=== PATIENT | male | born 1950 | race Caucasian/White ===

== ENCOUNTER → 2017-09-20 | Outpatient (CLI) | payer MEDICARE, OTHER ==
[2015-08-26 11:25] VITALS: BMI 25.0
[~2017-09-20] MED LIST: ASPI-757 PO; DIA10 PO; DOC100 PO; DOCU-416 PO; DOXA1TAB37 PO; HYDR-4308 PO; IBU800 PO; LISI-349 PO; MORP-20 PO; MORP60TA51 PO; NAPR-744 PO; OMEP-218 PO; OXYGENHOME INH; TEST200V IM; TEST200V20 IM; TEST200V22; VERA240T12 PO
[2017-09-20 09:11] LABS: PLATELET COUNT, AUTOMATED 163 K/uL (150-450)
[2017-09-20 09:44] LABS: LDL CHOLESTEROL 91 mg/dl
== END ==
LOC: LAB 08:33
PROVIDERS: ATTEND Internal Medicine
DX: Z12.5 Encounter for screening for malignant neoplasm of prostate (principal); M17.11 Unilateral primary osteoarthritis, right knee; I10 Essential (primary) hypertension; M19.90 Unspecified osteoarthritis, unspecified site; E29.1 Testicular hypofunction; N40.0 Benign prostatic hyperplasia without lower urinary tract symptoms; Z86.39 Personal history of other endocrine, nutritional and metabolic disease
CPT/HCPCS: 36415; 83036; 84402; 84403; 85025; G0103; 82040; 82247; 82310; 82374; 82435; 82465; 82565; 82947; 83718; 84075; 84132; 84153; 84155; 84295; 84450; 84460; 84478; 84520

== ENCOUNTER → 2017-10-17 | Outpatient (CLI) | payer MEDICARE, OTHER ==
[2015-08-26 11:25] VITALS: BMI 25.0
[~2017-10-17] MED LIST changes: +DOXA4TAB58 PO; +POLY17PO25 PO; +VALS1TAB4 PO
== END ==
LOC: LAB 09:26
PROVIDERS: ATTEND Internal Medicine
DX: E29.1 Testicular hypofunction (principal)
CPT/HCPCS: 36415; 84403

== ENCOUNTER → 2018-01-25 | Outpatient (CLI) | payer MEDICARE, OTHER ==
[2015-08-26 11:25] VITALS: BMI 25.0
[2018-01-25 08:49] LABS: PLATELET COUNT, AUTOMATED 176 K/uL (150-450)
[2018-01-25 09:39] LABS: LDL CHOLESTEROL 102 mg/dl
== END ==
LOC: LAB 08:32
PROVIDERS: ATTEND Internal Medicine
DX: N40.0 Benign prostatic hyperplasia without lower urinary tract symptoms (principal); I10 Essential (primary) hypertension; M19.90 Unspecified osteoarthritis, unspecified site; Z86.39 Personal history of other endocrine, nutritional and metabolic disease
CPT/HCPCS: 36415; 82040; 82247; 82310; 82374; 82435; 82465; 82565; 82947; 83036; 83718; 84075; 84132; 84155; 84295; 84450; 84460; 84478; 84520; 85025

== ENCOUNTER 2018-01-28 04:03 | Inpatient (IN) | payer MEDICARE, OTHER ==
[~2018-01-28] VITALS: Ht 172.7 cm; Wt 83.0 kg
--- NOTE | 2018-01-28 04:11 | ER Report ---
History and Physical Time Seen By MD: 04:11 HPI/ROS CHIEF COMPLAINT:?, Bowel obstruction HISTORY OF PRESENT ILLNESS: 67-year-old male presents with severe abdominal pain and pressure for 6 hours. Patient last ate dinner last night. He subsequently developed severe abdominal pain after retiring to bed. He has a history of 2 previous bowel obstructions. He has previous abdominal surgery in the form of partial colectomy for diverticulitis. Patient also has 3 back surgeries and is on high levels of extended release morphine 60 mg 3 times a day. Patient states he freely suffers constipation. Patient states his pain is different. He feels that this is similar to one of his previous bowel obstructions. Patient notes no vomiting, but severe nausea. His last bowel movement was 7 PM last night. REVIEW OF SYSTEMS: Respiratory: No cough, no dyspnea. Cardiovascular: No chest pain, no palpitations. Gastrointestinal: As above Musculoskeletal: No back pain. Allergies: Coded Allergies: ROSENDA Inhibitors (Verified Allergy, Unknown, 01/28/18) Home Meds Reported Medications Morphine Sulfate (Arymo ER) 30 Mg Tab.po.er, 1 TAB PO DAILY once mid day 01/28/18 Valsartan/Hydrochlorothiazide (DIOVAN HCT 160-12.5 MG TAB) 1 Each Tablet, 1 TAB PO DAILY 01/28/18 Ibuprofen (IBUPROFEN) 200 Mg Capsule, 2 CAP PO BID Y for PAIN, CAPSULE 01/28/18 Polyethylene Glycol 3350 (MIRALAX) 17 Gm Powd.pack, 17 GM PO QDAY Y for CONSTIPATION, PKT 10/11/17 Omeprazole Magnesium (PRILOSEC OTC) 20 Mg Tablet.dr, 1 TAB PO QDAY, TAB 04/06/17 Morphine Sulfate 15 Mg Er Tab (MORPHINE SULFATE 15 MG ER TAB) 15 Mg Tablet.er, 60 MG PO BID, TAB 04/06/17 Docusate Sodium (COLACE) 100 Mg Capsule, 1 TAB PO PRN Y for CONSTIPATION, CAPSULE BID PRN 04/06/17 Testosterone Cypionate (DEPO-TESTOSTERONE) 200 Mg/1 Ml Vial, 200 MG IM Monthly, VIAL 04/06/17 Discontinued Scripts Valsartan/Hydrochlorothiazide (VALSARTAN-HCTZ 160-12.5 MG TAB) 1 Each Tablet, 1 EACH PO QDAY, #7 TAB Prov:CHRISTOS MUSE MD 01/26/18 Doxazosin Mesylate (DOXAZOSIN MESYLATE) 4 Mg Tablet, 0.5 TAB PO QAM, #45 TAB 3 Refills Prov:CHRISTOS MUSE MD 11/20/17 Reviewed Nurses Notes: Yes Old Medical Records Reviewed: Yes Hx Smoking: No Smoking Status: Never Smoker Hx Substance Use Disorder: No Hx Alcohol Use: No Constitutional Vital Sign - Last 24 Hours 01/28/18 01/28/18 01/28/18 01/28/18 04:08 04:18 04:20 04:30 Temp 98.0 Pulse 87 86 Resp 16 B/P (MAP) 160/113 (129) 160/113 143/106 (118) Pulse Ox 95 98 O2 Delivery Room Air 01/28/18 01/28/18 01/28/18 01/28/18 04:33 04:48 05:00 05:03 Pulse 79 69 B/P (MAP) 142/92 (109) Pulse Ox 95 93 89 01/28/18 01/28/18 01/28/18 01/28/18 05:18 05:23 05:30 05:38 Pulse 70 66 69 B/P (MAP) 153/93 (113) Pulse Ox 89 91 01/28/18 01/28/18 01/28/18 01/28/18 05:53 06:00 06:08 06:23 Pulse 69 76 75 B/P (MAP) 139/85 (103) Pulse Ox 84 90 91 01/28/18 06:30 B/P (MAP) 155/106 (122) Intake and Output 01/28/18 01/28/18 01/29/18 14:59 22:59 06:59 Intake Total 1000 ml Balance 1000 ml Physical Exam General Appearance: The patient is alert, has no immediate need for airway protection and no current signs of toxicity. Moderate distress HEENT: Pupils equal and round no injection. Oropharynx with moist membranes, no erythema Respiratory: Chest is non tender, lungs are clear to auscultation. Cardiac: regular rate and rhythm Gastrointestinal: Abdomen is soft, mild distention, firm upper abdomen, moderate tenderness in the left upper quadrant, no masses, bowel sounds normal. Musculoskeletal: Neck: Neck is supple and non tender. Extremities have full range of motion and are non tender. Skin: No rashes or lesions. DIFFERENTIAL DIAGNOSIS: After history and physical exam differential diagnosis was considered for abdominal pain including but not limited to appendicitis, cholecystitis, , bowel obstruction gastritis and urinary tract infection. Medical Decision Making Data Points Result Diagram: 01/28/18 0414 01/28/18 0414 Laboratory Hematology Test 01/28/18 04:14 Red Blood Count 6.26 M/uL (4.00-5.60) Mean Corpuscular Volume 89.8 fL (80.0-96.0) Mean Corpuscular Hemoglobin 31.4 pg (26.0-33.0) Mean Corpuscular Hemoglobin Concent 35.0 g/dL (32.0-36.0) Red Cell Distribution Width 13.3 % (11.5-14.5) Mean Platelet Volume 7.3 fL (7.2-11.1) Neutrophils (%) (Auto) 73.6 % (39.4-72.5) Lymphocytes (%) (Auto) 16.4 % (17.6-49.6) Monocytes (%) (Auto) 7.9 % (4.1-12.4) Eosinophils (%) (Auto) 1.6 % (0.4-6.7) Basophils (%) (Auto) 0.5 % (0.3-1.4) Nucleated RBC Relative Count (auto) 0.7 /100WBC Neutrophils # (Auto) 9.4 K/uL (2.0-7.4) Lymphocytes # (Auto) 2.1 K/uL (1.3-3.6) Monocytes # (Auto) 1.0 K/uL (0.3-1.0) Eosinophils # (Auto) 0.2 K/uL (0.0-0.5) Basophils # (Auto) 0.1 K/uL (0.0-0.1) Nucleated RBC Absolute Count (auto) 0.09 K/uL Sodium Level 137 mmol/L (137-145) Potassium Level 4.4 mmol/L (3.5-5.0) Chloride Level 95 mmol/L (98-107) Carbon Dioxide Level 30 mmol/L (22-30) Blood Urea Nitrogen 9 mg/dl (9-21) Creatinine 0.80 mg/dl (0.66-1.25) Glomerular Filtration Rate Calc > 60.0 Random Glucose 121 mg/dl (75-110) Lactate 1.8 mmol/L (0.7-2.1) Calcium Level 10.4 mg/dl (8.4-10.2) Total Bilirubin 0.6 mg/dl (0.2-1.3) Aspartate Amino Transf (AST/SGOT) 28 U/L (0-35) Alanine Aminotransferase (ALT/SGPT) 35 U/L (0-56) Alkaline Phosphatase 65 U/L (0-126) Total Protein 7.6 gm/dl (6.3-8.2) Albumin 4.8 g/dl (3.5-5.0) Amylase Level 69 U/L (0-110) Lipase 182 U/L (23-300) Chemistry Test 01/28/18 04:14 White Blood Count 12.8 k/uL (4.5-11.0) Red Blood Count 6.26 M/uL (4.00-5.60) Hemoglobin 19.7 g/dL (14.0-18.0) Hematocrit 56.2 % (42.0-52.0) Mean Corpuscular Volume 89.8 fL (80.0-96.0) Mean Corpuscular Hemoglobin 31.4 pg (26.0-33.0) Mean Corpuscular Hemoglobin Concent 35.0 g/dL (32.0-36.0) Red Cell Distribution Width 13.3 % (11.5-14.5) Platelet Count 215 K/uL (150-450) Mean Platelet Volume 7.3 fL (7.2-11.1) Neutrophils (%) (Auto) 73.6 % (39.4-72.5) Lymphocytes (%) (Auto) 16.4 % (17.6-49.6) Monocytes (%) (Auto) 7.9 % (4.1-12.4) Eosinophils (%) (Auto) 1.6 % (0.4-6.7) Basophils (%) (Auto) 0.5 % (0.3-1.4) Nucleated RBC Relative Count (auto) 0.7 /100WBC Neutrophils # (Auto) 9.4 K/uL (2.0-7.4) Lymphocytes # (Auto) 2.1 K/uL (1.3-3.6) Monocytes # (Auto) 1.0 K/uL (0.3-1.0) Eosinophils # (Auto) 0.2 K/uL (0.0-0.5) Basophils # (Auto) 0.1 K/uL (0.0-0.1) Nucleated RBC Absolute Count (auto) 0.09 K/uL Glomerular Filtration Rate Calc > 60.0 Lactate 1.8 mmol/L (0.7-2.1) Calcium Level 10.4 mg/dl (8.4-10.2) Total Bilirubin 0.6 mg/dl (0.2-1.3) Aspartate Amino Transf (AST/SGOT) 28 U/L (0-35) Alanine Aminotransferase (ALT/SGPT) 35 U/L (0-56) Alkaline Phosphatase 65 U/L (0-126) Total Protein 7.6 gm/dl (6.3-8.2) Albumin 4.8 g/dl (3.5-5.0) Amylase Level 69 U/L (0-110) Lipase 182 U/L (23-300) EKG/Imaging Imaging Results: CT scan of the abdomen and pelvis with IV contrast was obtained. The results of the study are ABDOMEN/PELVIS WITH CONTRAST HISTORY: Abdominal pain. Possible bowel obstruction. COMPARISON: 07/22/2012. TECHNIQUE: Axial images were obtained from the lung bases through the symphysis pubis with intravenous contrast. Sagittal and coronal reformats were performed. One of the following dose optimization techniques was utilized in the performance of this exam: Automated exposure control; adjustment of the mA and/ or kV according to the patient's size; or use of an iterative reconstruction technique. Specific details can be referenced in the facility's radiology CT exam operational policy. CONTRAST: 75 mm IV Isovue-370. FINDINGS: Lower chest: Clear. Liver: Normal. Gallbladder/biliary: Normal. Pancreas: Normal. Spleen: Enlarged, measuring 16.5 cm. It has increased in size, previously 15.2 cm. Adrenals: Normal. Kidneys/ureters/bladder: Normal. GI/mesentery/peritoneal cavity: There are fluid-filled small bowel loops in the left upper to mid abdomen that are at the upper limits of normal in size to mildly enlarged. There is a transition in the left lower abdomen with small bowel feces sign proximal to the transition (coronal image 38). Distal small bowel loops are decompressed, as are the proximal small bowel loops. There is a small amount of fluid in the leaves of the mesentery surrounding the slightly dilated small bowel loops. There is no free air. The appendix is normal. There is pancolonic diverticulosis without diverticulitis. Vessels: There is moderate atherosclerotic disease without aneurysm. No dissection. Nodes: Normal. Pelvis: Prostate is heterogeneous and contains punctate calcifications. It is prominent in size, measuring 5.1 cm. No free fluid. There is irregular calcification in the posterior right inguinal canal, unchanged. Bones/vertebra/soft tissues: There is severe degenerative change of the lumbar spine that has progressed. There is 4 mm anterolisthesis of L4 on L5, unchanged. There is straightening of the normal lumbar lordosis. There are numerous Schmorl nodes. There is stable wedging of T11, likely physiologic. There is severe degenerative facet disease of the mid to lower lumbar spine. IMPRESSION: 1. Developing versus partial small bowel obstruction with transition in the left lower abdomen. There is a small amount of reactive free fluid in the leaves of the mesentery adjacent to mildly dilated small bowel loops. 2. Splenomegaly which has progressed. 3. Prostate is prominent. 4. Progression of degenerative changes of the spine. The study was read by the radiologist. I viewed the images myself on the PACS system. ED Course/Re-evaluation Clinical Indication for ER IV: Hydration, IV Access ED Course Patient was admitted to an examination room. H&P was done. The differential diagnosis was considered. On clinical examination. Patient has a tender abdomen. It's mildly distended. Patient's treated with IV fluid hydration, Zofran and Dilaudid. A CT scan of the abdomen and pelvis is performed which shows a developing partial small bowel obstruction with a small amount of reactive free fluid in the mesentery adjacent to dilated small bowel him a transition is in the left lower quadrant. Patient reports improvement of his symptoms and pressure is relieved partially with the Dilaudid 1 mg IV. 01/28/2018 5:40:31 am case was discussed with Dr. Ava Murguia, on-call general surgery will come evaluate the patient in the ER. Decision to Disposition Date: January 28, 2018 Decision to Disposition Time: 05:26 Depart Departure Latest Vital Signs Vital Signs Date Time Temp Pulse Resp B/P (MAP) Pulse Ox O2 Delivery O2 Flow Rate FiO2 01/28/18 06:30 155/106 (122) 01/28/18 06:23 75 91 5/13/18 04:20 98.0 16 Room Air Impression: Primary Impression: Small bowel obstruction, partial Additional Impression: History of partial colectomy Condition: Improved Disposition: Admitted from ER Referrals: CHRISTOS MUSE MD (PCP) Problem Qualifiers CALVIN JOHN DO January 28, 2018 04:11
[2018-01-28] MEDS ORDERED: NS(*) 0.9% 1000 ML BAG 1,000 ML IV ONE ×2 (04:17→06:50)
[2018-01-28] MEDS ORDERED: ONDANSETRON 4 MG/2 ML VIAL IVP ONE (04:20)
[2018-01-28] MEDS ORDERED: fentaNYL CITR 100 MCG/2 ML AMP IVP ONE (04:20)
[2018-01-28 04:27] LABS: PLATELET COUNT, AUTOMATED 215 K/uL (150-450)
[2018-01-28] MEDS ORDERED: HYDROmorphone* 1 MG/ML 1 MG/ML ML IVP ONE ×2 (04:30→06:40)
[2018-01-28] MEDS ORDERED: IOPAMIDOL 76% 75 ML INFUS BTL 75 ML ONE (04:40)
--- NOTE | 2018-01-28 05:32 | RADIOLOGY IMAGING REPORT ---
FACILITY: [facility] PATIENT NAME: Per Cormier : 1950 MR: [id number] V: [id number] EXAM DATE: ORDERING PHYSICIAN: CALVNI JOHN TECHNOLOGIST: Location: [facility] - [place] Patient: Per Cormier : 1950 Visit/Account:[id number] Date of Sevice: 01/28/2018 ABDOMEN/PELVIS WITH CONTRAST HISTORY: Abdominal pain. Possible bowel obstruction. COMPARISON: 07/22/2012. TECHNIQUE: Axial images were obtained from the lung bases through the symphysis pubis with intravenou s contrast. Sagittal and coronal reformats were performed. One of the following dose optimization techniques was utilized in the performance of this exam: Autom ated exposure control; adjustment of the mA and/or kV according to the patient's size; or use of an i terative reconstruction technique. Specific details can be referenced in the facility's radiology CT exam operational policy. CONTRAST: 75 mm IV Isovue-370. FINDINGS: Lower chest: Clear. Liver: Normal. Gallbladder/biliary: Normal. Pancreas: Normal. Spleen: Enlarged, measuring 16.5 cm. It has increased in size, previously 15.2 cm. Adrenals: Normal. Kidneys/ureters/bladder: Normal. GI/mesentery/peritoneal cavity: There are fluid-filled small bowel loops in the left upper to mid abd omen that are at the upper limits of normal in size to mildly enlarged. There is a transition in the left lower abdomen with small bowel feces sign proximal to the transition (coronal image 38). Distal small bowel loops are decompressed, as are the proximal small bowel loops. There is a small amount of fluid in the leaves of the mesentery surrounding the slightly dilated small bowel loops. There is no free air. The appendix is normal. There is pancolonic diverticulosis without diverticulitis. Vessels: There is moderate atherosclerotic disease without aneurysm. No dissection. Nodes: Normal. Pelvis: Prostate is heterogeneous and contains punctate calcifications. It is prominent in size, siva uring 5.1 cm. No free fluid. There is irregular calcification in the posterior right inguinal canal, unchanged. Bones/vertebra/soft tissues: There is severe degenerative change of the lumbar spine that has progres sed. There is 4 mm anterolisthesis of L4 on L5, unchanged. There is straightening of the normal lumba r lordosis. There are numerous Schmorl nodes. There is stable wedging of T11, likely physiologic. The re is severe degenerative facet disease of the mid to lower lumbar spine. IMPRESSION: 1. Developing versus partial small bowel obstruction with transition in the left lower abdomen. There is a small amount of reactive free fluid in the leaves of the mesentery adjacent to mildly dilated s mall bowel loops. 2. Splenomegaly which has progressed. 3. Prostate is prominent. 4. Progression of degenerative changes of the spine. Findings a small bowel obstruction and splenomegaly were discussed by phone with CALVIN JOHN on 01/28 5:26 AM. Report Dictated By: Cierra Mae at 01/28/2018 5:11 AM Report E-Signed By: Cierra Mae at 01/28/2018 5:28 AM WSN:[id number]
[2018-01-28] MEDS ORDERED: NALOXONE HCL 0.4 MG/ML VIAL IVP PRN (06:40)
[2018-01-28] MEDS ORDERED: ONDANSETRON 4 MG/2 ML VIAL IVP PRN (06:40)
--- NOTE | 2018-01-28 06:59 | Gen Surgery History & Physical ---
History of Present Illness Chief Complaint Abdominal pain History of Present Illness 67 year old male with past medical history notable for chronic back pain and constipation who presents with complaints of abdominal pain which has been increasing, with associated distention. The patient has history of a sigmoid colectomy secondary to diverticulitis back in the . He has had several SBO, and states that the symptoms this time feel similar to previous episodes. His last admission for SBO was in 2011. Both have resolved with non-operative management. His last BM was yesterday afternoon, small amount of flatus since that time. Denies nausea/vomiting. Pain localized to upper abdomen. No fevers. History Unable To Obtain Past Medical: Patient with history of chronic pain, previous SBO, GERD, low testosterone, HTN, constipation Problems: (1) Small bowel obstruction, partial Status: Acute (2) Benign hypertension Status: Chronic (3) Chronic pain Status: Chronic Home Meds Reported Medications Polyethylene Glycol 3350 (MIRALAX) 17 Gm Powd.pack, 17 GM PO QDAY, PKT 10/11/17 Omeprazole Magnesium (PRILOSEC OTC) 20 Mg Tablet.dr, 1 TAB PO QDAY, TAB 04/06/17 Morphine Sulfate 15 Mg Er Tab (MORPHINE SULFATE 15 MG ER TAB) 15 Mg Tablet.er, 60 MG PO TID, TAB 04/06/17 Docusate Sodium (COLACE) 100 Mg Capsule, 50 MG PO PRN, CAPSULE 04/06/17 Testosterone Cypionate (DEPO-TESTOSTERONE) 200 Mg/1 Ml Vial, 200 MG IM Monthly, VIAL 04/06/17 Discontinued Scripts Valsartan/Hydrochlorothiazide (VALSARTAN-HCTZ 160-12.5 MG TAB) 1 Each Tablet, 1 EACH PO QDAY, #7 TAB Prov:CHRISTOS MUSE MD 01/26/18 Doxazosin Mesylate (DOXAZOSIN MESYLATE) 4 Mg Tablet, 0.5 TAB PO QAM, #45 TAB 3 Refills Prov:CHRISTOS MUSE MD 11/20/17 Allergies: Coded Allergies: ROSENDA Inhibitors (Verified Allergy, Unknown, 01/28/18) Patient History: Family history was reviewed; no changes noted. Review of Systems All Systems Reviewed/Normal: Yes Constitutional: No Fever Cardiovascular: No Chest Pain Respiratory: No Shortness of Breath Gastrointestinal: No Nausea, No Vomiting, No Diarrhea, Constipation Musculoskeletal: Pain (Chronic) Exam General Appearance: Alert, Awake, No Acute Distress Neuro: No Gross deficits Eyes: PERRLA ENT: Normal Neck: No Masses Cardiovascular: Normal Rhythm & Peripheral Pulses Respiratory: No Respiratory Distress GI: Other (soft, mildly distended, tender to palpation in the upper abdomen without rebound or guarding, well healed lower midline abdominal incision) Musculoskeletal: No Weakness/Pain Extremities: Soft and Non Tender, Warm, Perfused Integumentary: Skin Intact without Lesion / Mass Psych: Alert & Oriented X3, Appropriate Mood & Affect Medical Decision Making Data Points Result Diagram: 01/28/1841301/28/18413 EKG / Imaging Monitor Interpretation: Normal Sinus Rhythm Imaging CT Abd/Pelvis: partial small bowel obstruction with transition point in L lower quadrant. Pre-Admit Course Medical Record Review: Yes Assessment and Plan Problems: (1) Chronic pain Status: Chronic Assessment & Plan: 67 year old male who presents with increasing distention and abdominal pain similar to previous SBO. Work up reveals findings consistent with pSBO. Chronic pain: will continue home medications, oral morphine TID. (2) Small bowel obstruction, partial Status: Acute Assessment & Plan: Small bowel obstruction: will plan for NPO with IVF and bowel rest. Pain control with Dilaudid PRN. Zofran PRN for nausea. The patient has a hgb of 19, although on review of his previous labs, this appears to be chronic for him. His renal function does not indicate significant dehydration. He has received two boluses of 1L crystalloid in the ED, will continue fluids at 125ml/hr on the floor. He does have a mild leukocytosis, lactate WNL, exam reassuring. Will hold off on NGT for now as patient stomach not dilated on imaging, and patient without history of nausea/vomiting at home. Plan for SBFT later today vs tomorrow. GERD: continue home medication with PPI. Time Spent: > 30 min Venous Thromboembolism VTE Risk Patient's VTE Risk: Low Antithrombotics Is Pt On Any Antithrombotics?: Yes Problem Qualifiers (1) Chronic pain: Chronic pain type: other chronic pain Qualified Codes: G89.29 - Other chronic pain SULEMAN DASH MD January 28, 2018 06:58
[2018-01-28] MEDS ORDERED: IBUP200C71 PO (08:35)
[2018-01-28] MEDS ORDERED: VALS1TAB67 PO (08:44)
[2018-01-28] MEDS ORDERED: MORP30TA34 PO (08:44)
[2018-01-28 08:54] VITALS: BP 159/96
[2018-01-28] MEDS: LR(*) 1000 ML BAG 1,000 ML IV PRN ×2 (09:49→17:50)
[2018-01-28] MEDS: PANTOPRAZOLE SOD 20 MG TABEC PO SCH (09:49)
[2018-01-28] MEDS: MORPHINE CR 15 MG TABCR PO SCH ×3 (09:50→21:40)
[2018-01-28] MEDS: ENOXAPARIN 40 MG/0.4ML SYR SC SCH (09:51)
[2018-01-28 10:48] VITALS: Ht 172.7 cm; Wt 83.0 kg
[2018-01-28 11:03] VITALS: BP 156/95
[2018-01-28 14:53] VITALS: BP 149/90
[2018-01-28] MEDS: HYDROmorphone HCL 2 MG/ML SDV IVP PRN ×2 (16:35→20:05)
[2018-01-28 18:40] VITALS: BP 160/97
[2018-01-29 00:02] VITALS: BP 112/70
[2018-01-29 00:34] VITALS: BP 124/70
[2018-01-29] MEDS: LR(*) 1000 ML BAG 1,000 ML IV PRN (02:16)
[2018-01-29 03:03] VITALS: BP 114/71
[2018-01-29 05:58] LABS: PLATELET COUNT, AUTOMATED 154 K/uL (150-450)
[2018-01-29] MEDS ORDERED: ACETAMINOPHEN 325 MG TAB PO PRN (06:15)
[2018-01-29 07:29] VITALS: BP 114/66
--- NOTE | 2018-01-29 08:17 | General Surgery Progress Note ---
Subjective Progress Notes Subjective Feeling much better. Passing flatus. No BM. Also belching. Bloating is improved. Physical Exam Vital Signs Date Time Temp Pulse Resp B/P (MAP) Pulse Ox O2 Delivery O2 Flow Rate FiO2 01/29/18 07:31 92 Room Air 01/29/18 07:29 98.2 63 16 114/66 (82) 01/29/18 03:03 0.5 General Appearance: Alert, Awake, No Acute Distress, Afebrile GI: Soft and Non-Tender Extremities: Warm, Perfused Result Diagram: 01/29/18 0535 01/29/18 0535 Monitor Interpretation: Normal Sinus Rhythm Assessment and Plan Problems: (1) Small bowel obstruction, partial Status: Acute Assessment & Plan: 01/29/18: Doing much better. Will get a water-soluble SBFT today. If OK, will advance diet. (2) History of partial colectomy Status: Chronic Condition Stable. Time Spent: < 30 min Exam Sepsis Risk: No Definite Risk KELVIN SOTO MD January 29, 2018 08:17
[2018-01-29] MEDS: MORPHINE CR 15 MG TABCR PO SCH ×2 (08:59→13:46)
[2018-01-29] MEDS: PANTOPRAZOLE SOD 20 MG TABEC PO SCH (08:59)
[2018-01-29] MEDS: ENOXAPARIN 40 MG/0.4ML SYR SC SCH (09:00)
[2018-01-29] MEDS ORDERED: DIATRIZOATE MEGL/DIATRIZOA SOD 120 ML SOLN PO ONE (09:49)
--- NOTE | 2018-01-29 12:05 | Medical Nutrition Therapy ---
Nutrition Anthropometrics Height (Inches): 68.00 Height (Calculated Centimeters: 172.581797 Weight (Pounds): 183 Weight (Calculated Kilograms): 83.007 BMI Calculated: 27.82 Hx Weight Loss: No Hx Weight Gain: No Sanford Nutrition Score: Adequate Sanford Nutrition Risk Score: 20 Dietary Referral Nutrition Risk Factors: Nutrition Risk Comment: Physical Findings Physical Appearance: Overweight BMI 25-29 Skin Appearance Skin Appearance: Edema Edema Location Modifier: Edema Location: Type of Edema: Degree of Edema: Gastrointestinal Symptoms GI Symtoms: Constipation Tube Present: Bowel Sounds: Recent Bowel Pattern: Stool Characteristics: Nutritional Diagnosis Nutritional Risk Acuity 1: GI Obstruction Nutritional Risk Acuity 3: Nausea Past Medical History: bowel resection, GERD, SBO, HTN Nutritional Acuity: 1-High Nutrition Diagnosis: Increased Nutrient Needs, Inadequate Fluid Intake Nutrition Etiology: Physiological Causes Nutrition Problem/Etiology/Sym: Increased nutrient intake related to metbolic stress of AEB small bowel obstruction. Energy Requirement: 2075 ([place]. Adj REE BMI>27.5 1886 X 1.3 (AF) X 1.1 (SF) 2074.6) Protein Requirement: 83 (1g/lg 1X 83 ) Fluid Requirement: 2075 (1ml/kcal) Diet Type: NPO (Nothing by Mouth) Nutrition Intervention: Cont diet as ordered, Change diet, Incr diet as tolerated Nutrition Monitoring & Eval Nutrition Goals: Eat 75-100% Meal RD Patient Assessment Time: [address] Assessment Type: RD Screen Patient Nutrition Acuity: 1-High Follow Up Date: January 30, 2018 Nutritional Comment: 01/28 Pt admitted with abdominal pain and will be treated for potential SBO. Currently on conservative treatment course and NPO status. Last bowel movement was yesterday (01/27). Notable labs include elevated H/H, glc 121. Will cont to monitor and follow up tomorrow. 01/29: Pt continues to experince constipation and is passing flatus. Pt has not had a bowel movement since (01/27). Pt bloating has decreased since admission. Pt continues on NPO diet, this will be day two. Na is slightly low 135. No other abnormal lab values. Continue to monitor pt progress on NPO diet and diet advancement. -BJORN MCKOY January 29, 2018 08:17
[2018-01-29 13:44] VITALS: BP 135/82
--- NOTE | 2018-01-29 17:03 | RADIOLOGY IMAGING REPORT ---
FACILITY: [facility] - [place] PATIENT NAME: Per Cormier : 1950 MR: [id number] V: [id number] EXAM DATE: ORDERING PHYSICIAN: KELVIN SOTO TECHNOLOGIST: Location: [facility] - [place] Patient: Per Cormier : 1950 Visit/Account:[id number] Date of Sevice: 01/29/2018 Exam type: SMALL BOWEL SERIES History: SBO; water soluble contrast only Comparison: CT abdomen and pelvis January 28, 2018. Findings: The patient was given a Gastrografin suspension to swallow. Gastrografin was followed throughout the small bowel to the colon. Transit time to the left-sided colon was one hour. Small bowel does not appear dilated. No gross mucosal abnormality is seen although mucosal detail was somewhat limited du e to the water-soluble nature with contrast.. Fluoroscopy was not utilized for this examination. IMPRESSION: 1. No evidence of small bowel obstruction at this time Report Dictated By: Daylin Villalobos MD at 01/29/2018 4:57 PM Report E-Signed By: Daylin Villalobos MD at 01/29/2018 4:58 PM WSN:[id number]
--- NOTE | 2018-01-29 17:31 | Short(Outpt) Discharge Summary ---
Discharge Summary Reason for Hosp/Final Diag: (1) Small bowel obstruction, partial Status: Acute Hospital Course & Plan: 01/29/18: Doing much better. Will get a water-soluble SBFT today. If OK, will advance diet. 01/29/18 (evening): Back to normal. SBFT normal. No obstruction. Tolerating diet. Will d/c to home. (2) History of partial colectomy Status: Chronic Departure Discharge to: Home, Self Care Discharge Instructions Home Meds Reported Medications Morphine Sulfate (Arymo ER) 30 Mg Tab.po.er, 1 TAB PO DAILY once mid day 01/28/18 Valsartan/Hydrochlorothiazide (DIOVAN HCT 160-12.5 MG TAB) 1 Each Tablet, 1 TAB PO DAILY 01/28/18 Ibuprofen (IBUPROFEN) 200 Mg Capsule, 2 CAP PO BID Y for PAIN, CAPSULE 01/28/18 Polyethylene Glycol 3350 (MIRALAX) 17 Gm Powd.pack, 17 GM PO QDAY Y for CONSTIPATION, PKT 10/11/17 Omeprazole Magnesium (PRILOSEC OTC) 20 Mg Tablet.dr, 1 TAB PO QDAY, TAB 04/06/17 Morphine Sulfate 15 Mg Er Tab (MORPHINE SULFATE 15 MG ER TAB) 15 Mg Tablet.er, 60 MG PO BID, TAB 04/06/17 Docusate Sodium (COLACE) 100 Mg Capsule, 1 TAB PO PRN Y for CONSTIPATION, CAPSULE BID PRN 04/06/17 Testosterone Cypionate (DEPO-TESTOSTERONE) 200 Mg/1 Ml Vial, 200 MG IM Monthly, VIAL 04/06/17 Discontinued Scripts Valsartan/Hydrochlorothiazide (VALSARTAN-HCTZ 160-12.5 MG TAB) 1 Each Tablet, 1 EACH PO QDAY, #7 TAB Prov:CHRISTOS MUSE MD 01/26/18 Doxazosin Mesylate (DOXAZOSIN MESYLATE) 4 Mg Tablet, 0.5 TAB PO QAM, #45 TAB 3 Refills Prov:CHRISTOS MUSE MD 11/20/17 Diet: Regular Activity: As Tolerated KELVIN SOTO MD January 29, 2018 17:31
== END 2018-01-29 17:45 | disposition home or self-care (01) | DRG 390 ==
LOC: ER 04:20 → MED 08:03
PROVIDERS: ADMIT Surgery; ATTEND Surgery
DX: K56.600 Partial intestinal obstruction, unspecified as to cause (principal); G89.29 Other chronic pain; K59.09 Other constipation; I10 Essential (primary) hypertension; K21.9 Gastro-esophageal reflux disease without esophagitis; Z88.8 Allergy status to other drugs, medicaments and biological substances; Z96.651 Presence of right artificial knee joint
CPT/HCPCS: 36415; 74177; 74250; 81001; 82040; 82150; 82247; 82310; 82374; 82435; 82565; 82947; 83605; 83690; 83735; 84075; 84132; 84155; 84295; 84450; 84460; 84520; 85025; 99284; J1170; J1650; J2405; J7030; J7120; Q9967

== ENCOUNTER → 2018-07-10 | Outpatient (CLI) | payer MEDICARE, OTHER ==
[2018-01-28 10:48] VITALS: BMI 27.8
[~2018-07-10] MED LIST changes: +ASPI-1471 PO; -HYDR-4308 PO; +HYDR-654 PO; +IBUP-136 PO; +IRBE150T7 PO; +IRBE1TAB10 PO; +LOSA-51 PO; +MAGN200T3 PO; +MORP30TA34 PO; +VALS160T22 PO; +VALS1TAB67 PO
--- NOTE | 2018-07-11 08:15 | EKG ---
[place] [facility] [place] NAME: KAVON LOUISE : [id number] MR: [id number] V: [id number] EXAM DATE: ORDERING PHYSICIAN: CHRISTOS MUSE TECHNOLOGIST: JACK Navarro Reason : CHEST PAIN Blood Pressure : / mmHG Vent. Rate : 069 BPM Atrial Rate : 069 BPM P-R Int : 172 ms QRS Dur : 076 ms QT Int : 374 ms P-R-T Axes : 027 011 040 degrees QTc Int : 400 ms Normal sinus rhythm Normal ECG When compared with ECG of 01-AUG-2015 08:27, Criteria for Septal infarct are no longer present Confirmed by CHRISTOS MUSE ([id number]) on 07/11/2018 10:47:19 AM Referred By: KADI Confirmed By:CHRISTOS MUSE
== END ==
LOC: RESP 16:22
PROVIDERS: ATTEND Internal Medicine
DX: Z02.9 Encounter for administrative examinations, unspecified (principal)

== ENCOUNTER → 2018-07-11 | Outpatient (CLI) | payer MEDICARE, OTHER ==
[2018-01-28 10:48] VITALS: BMI 27.8
[2018-07-11 07:54] LABS: PLATELET COUNT, AUTOMATED 167 K/uL (150-450)
[2018-07-11 08:47] LABS: LDL CHOLESTEROL 100 mg/dl
== END ==
LOC: LAB 07:31
PROVIDERS: ATTEND Internal Medicine
DX: R07.9 Chest pain, unspecified (principal); I10 Essential (primary) hypertension; G89.4 Chronic pain syndrome; E29.1 Testicular hypofunction; R73.9 Hyperglycemia, unspecified
CPT/HCPCS: 36415; 81001; 82040; 82247; 82310; 82374; 82435; 82465; 82565; 82947; 83036; 83718; 84075; 84132; 84155; 84295; 84443; 84450; 84460; 84478; 84520; 85025

== ENCOUNTER → 2018-07-30 | Outpatient (CLI) | payer MEDICARE, OTHER ==
[2018-01-28 10:48] VITALS: BMI 27.8
--- NOTE | 2018-07-30 14:01 | RT STRESS TEST REPORT ---
FACILITY: [facility] PATIENT NAME: KAVON LOUISE : [id number] MR: [id number] V: [id number] EXAM DATE: ORDERING PHYSICIAN: CHRISTOS MUSE TECHNOLOGIST: Miguel Angel Acquisition Time: 2018-07-30 10:19:36 Total Exercise Time: 00:05:13 Test Indications: Chest Discomfort Medications: morphine bid omeprazole qday aspirin qday valsartan bid diclofena sodium cream Protocol: MARTHA 2 Max HR: 153 BPM 102% of Pred: 150 BPM Max BP: 205/090 mmHG Max Work Load: 7.0 METS frequent PVCs during the test which improved during recovery otherwise unremarkable Impression No EKG changes to suggest ischemia Nuclear medicine report to follow Confirmed by CHRISTOS MUSE ([id number]) on 07/30/2018 2:01:22 PM Referred By: Lv Griffith Overread By: CHRISTOS MUSE
--- NOTE | 2018-07-30 16:02 | RADIOLOGY IMAGING REPORT ---
FACILITY: [facility] - [place] PATIENT NAME: Per Cormier : 1950 MR: [id number] V: [id number] EXAM DATE: ORDERING PHYSICIAN: CHRISTOS MUSE TECHNOLOGIST: Location: [facility] Patient: Per Cormier : 1950 Visit/Account:[id number] Date of Sevice: 07/30/2018 EXAMINATION: Single Isotope SPECT Imaging with Exercise and Gated SPECT Imaging DATE OF EXAMINATION: 07/30/18 DATE OF INTERPRETATION: 07/30/18 REQUESTING PHYSICIAN: CHRISTOS MUSE INDICATION: chest pain. PROCEDURE: After informed consent the patient received an intravenous injection of 11.1 mCi of Tc-9 9m sestamibi followed at the appropriate time interval by rest imaging. The patient then exercised a ccording to the standard Vishal protocol for 5:13 minutes achieving 7 METS. Resting heart rate was 70 bpm with a peak heart rate of 153 bpm which is 100 % of maximal predicted heart rate for age. Bloo d pressure at rest was 152 / 90; blood pressure during exercise was 205 / 90. There was no chest noman n during exercise. Baseline EKG demonstrates nsr. There were no EKG changes of ischemia at peak exe rcise. Approximately one minute and 30 seconds prior to the termination of exercise, the patient rec eived an intravenous injection of 27.5 mCi of Tc-99m sestamibi followed by stress imaging. RAW DATA: Examination of the summed raw data revealed a good quality study. MYOCARDIAL PERFUSION: The tomographic images demonstrate normal perfusion. No ischemia or infarct n oted.. GATED IMAGES: The gated images demonstrate EF of 66% without SWMA IMPRESSION: 1. Exercise tolerance of 5:13 without CP or diagnostic EKG changes. 2. Normal myocardial perfusion scan. 3. LV systolic function; LVEF 66%. 4. Based on the results of this exam, the patient appears to be at low risk for future cardiovascular events. Report Dictated By: Felipe Mckeon at 07/30/2018 3:50 PM Report E-Signed By: Felipe Mckeon at 07/30/2018 3:58 PM WSN:[id number]
== END ==
LOC: NUC 01:15
PROVIDERS: ATTEND Internal Medicine
DX: I49.3 Ventricular premature depolarization (principal)
CPT/HCPCS: 78452; 93017; A9500

== ENCOUNTER → 2018-08-03 | Outpatient (CLI) | payer MEDICARE, OTHER ==
[2018-01-28 10:48] VITALS: BMI 27.8
[~2018-08-03] MED LIST changes: +NIFE30TA92 PO; +NITT TD; +OMEP20CA68 PO; +nitropaste TP
== END ==
LOC: LAB 08:35
PROVIDERS: ATTEND Internal Medicine
DX: I73.00 Raynaud's syndrome without gangrene (principal)
CPT/HCPCS: 36415; 85651; 86038; 86140; 86200; 86430

== ENCOUNTER → 2019-02-07 | Outpatient (CLI) | payer MEDICARE, OTHER ==
[2018-01-28 10:48] VITALS: BMI 27.8
[~2019-02-07] MED LIST changes: +ASPI-764 PO; +MORP-21 PO; +MORP60CA7 PO; +NIFE-15 PO; +NIFE60TA95 PO; -VERA240T12 PO; +VERA240T95 PO
[2019-02-07 08:10] LABS: PLATELET COUNT, AUTOMATED 184 K/uL (150-450)
[2019-02-07 08:24] LABS: LDL CHOLESTEROL 88 mg/dl
== END ==
LOC: LAB 07:54
PROVIDERS: ATTEND Internal Medicine
DX: G89.29 Other chronic pain (principal); E78.5 Hyperlipidemia, unspecified; I73.00 Raynaud's syndrome without gangrene; R73.9 Hyperglycemia, unspecified; E29.1 Testicular hypofunction; I10 Essential (primary) hypertension
CPT/HCPCS: 36415; 81001; 83036; 84403; 84443; 85025; G0103; 82040; 82247; 82310; 82374; 82435; 82465; 82565; 82947; 83718; 84075; 84132; 84153; 84155; 84295; 84450; 84460; 84478; 84520